=== PATIENT | female | born 1985 | race Caucasian/White ===

== ENCOUNTER → 2019-09-02 | Outpatient (CLI) | payer BC | LOC: BHSO 10:47 | DX: F41.1 Generalized anxiety disorder (principal) ==

== ENCOUNTER → 2019-09-24 | Outpatient (CLI) | payer BC | LOC: BHSO 09:49 | DX: F40.10 Social phobia, unspecified (principal) | CPT/HCPCS: G0463 ==

== ENCOUNTER → 2020-02-02 | Outpatient (CLI) | payer BC | LOC: BHSO 09:41 | DX: F41.1 Generalized anxiety disorder (principal) | CPT/HCPCS: G0463 ==

== ENCOUNTER → 2020-03-30 | Outpatient (CLI) | payer BC | LOC: BHSO 09:46 | DX: F41.1 Generalized anxiety disorder (principal) | CPT/HCPCS: G0463 ==

== ENCOUNTER → 2021-09-22 | Outpatient (CLI) | payer BC | LOC: COL.RAD 07:50 | DX: R10.13 Epigastric pain (principal); F41.8 Other specified anxiety disorders ==